=== PATIENT | female | born 1985 | race Caucasian/White ===

== ENCOUNTER 2024-04-12 17:21 | Emergency (ER) | payer MEDICARE, MEDICAID, SELFPAY ==
[2024-04-12] VITALS (14 sets, daily range): BP systolic 105–123; BP diastolic 62–103; PULSE 54–85; RESP 18; TEMP 36.8; O2SAT 94–100
--- NOTE | 2024-04-12 17:45 | DI.CT_ITS ---
Exam(s) CT ABDOMEN PELVIS W EXAM: CT ABDOMEN PELVIS W CLINICAL HISTORY: upper abd pain. TECHNIQUE: Imaging Protocol: Axial computed tomography images with coronal and sagittal reformatted images were created and reviewed CONTRAST MATERIAL: Intravenous: Omnipaque-350 75cc Oral: None COMPARISON: No exams were available for comparison FINDINGS: VISUALIZED LUNG BASES: No nodules nor pleural effusions evident. ABDOMEN: There is no ascites. LIVER: There are no focal hepatic lesions evident. No dilated intrahepatic ducts. GALLBLADDER/BILIARY: No obvious gallbladder pathology. CBD is not dilated. PANCREAS: No evidence of pancreatic mass nor dilatation of the pancreatic duct. SPLEEN: Spleen is not enlarged. No obvious intrasplenic lesions. Splenic and portal veins are paten t. ADRENALS: There are no significant adrenal masses. KIDNEYS:No cysts evident. No solid renal masses. No calculi nor hydronephrosis.. ABDOMINAL AORTA: Abdominal aorta is not enlarged. LYMPH NODES:There is no retroperitoneal nor paraaortic adenopathy. ABDOMINAL WALL: No evidence of significant anterior abdominal wall nor inguinal hernia. GI: There is significant abnormal appearance of distal ileal loops consistent with enteritis. The ap pearance of the sigmoid colon is also suspicious for colitis pattern although may be related to under distension. There is a small-moderate amount of free fluid in the pelvis cul-de-sac. PELVIS: GI: No evidence of appendicitis.Sigmoid as above. No evidence of diverticulitis. LYMPH NODES: There is no intrapelvic nor inguinal adenopathy. REPRODUCTIVE: Uterus appears unremarkable. However, there are dilated left periuterine veins which d rain into a prominent left gonadal vein, consistent with pelvic congestion syndrome. No ovarian mass es URINARY BLADDER: No calculi nor obvious masses evident OSSEOUS: No fractures and no significant osseous lesions. Sacroiliac joints appear unremarkable. IMPRESSION: 1. There are abnormal distal small bowel ileal loops consistent with enteritis. Correlation with any history of Crohn's disease recommended 2. Also some uniform circumferential thickening of the wall of the sigmoid. Either related to coliti s or possibly artifact from under distension. There is no evidence of bowel obstruction. 3. There is small-moderate amount of fluid in the cul-de-sac of the pelvis. This is either related t o the abnormal bowel findings, female physiologic, or a combination of both. 4. Dilated left periuterine veins draining into prominent left ovarian gonadal vein consistent with p elvic congestion physiology. Correlation with any clinical symptoms of pelvic congestion syndrome re commended. RADIATION DOSE DELIVERED: 301.18mGy.cm Total DLP DATA REPOSITORY: All CT scans at this facility are submitted to the National Radiology Data Registry (NRDR) Dose Index Registry (DIR) with the [employer] (A[employer]). RADIATION OPTIMIZATION: All CT scans at this facility use at least one of these dose optimization te chniques: automated exposure control; mA and/or kV adjustment per patient size (includes targeted exa ms where dose is matched to clinical indication); or iterative reconstruction.
--- NOTE | 2024-04-12 17:59 | W.ED.GENAD ---
Discharge Plan Disposition Patient Disposition: Home Condition: Stable Discharge Details Clinical Impression: Abdominal pain Primary Care Provider: Juan Alberts ED Provider: Yee Draper Home Meds and New Rx's Prescriptions: No Action buprenorphine-naloxone [Suboxone] 8-2 mg film 1 film sublingual DAILY dextroamphetamine-amphetamine [Adderall] 20 mg tablet 60 mg PO DAILY Discharge Instructions Instructions: Abdominal Pain, Adult ED Additional Instructions: Please follow-up with your primary care doctor tomorrow. As discussed your workup is incomplete. I will call you once your CAT scan is resulted. In the meantime do not hesitate to return to the emergency department for any other concerns. HPI General Date/Time Provider Initiated Documentation: 04/12/24 17:27. HPI Narrative: The patient is a 38-year-old female with a history of a lot of mental health issues according to the patient and low vitamin D who comes to the emergency department for abdominal pain. The patient reports that in the middle of the night she developed pain along the mid upper part of her abdomen. Reports this is a stabbing pain that comes and goes without exacerbating or relieving factor. Reports it shoots down more to the left side of the front abdomen. Reports that she ate at a buffet for lunch with her son. Reports she was only one who ate the seafood that tasted off. Reports that she did not feel sick immediately after however. Admits that she has felt nauseous but states she has not vomited. Reports she has had diarrhea for the past couple weeks but states this is better today. Reports that her urine today has looked very dark but denies any burning sensation with urination. Denies any concern. States she has not taken medication to help with her symptoms and in fact skipped all of her medication today because she just felt poorly. Denies history of similar type problem in the past. Reports never had any abdominal surgeries. Denies any fevers or chills. Denies any chest pain or shortness of breath. Reports that she does not drink alcohol. Related Data Home Medications ?Medication ?Instructions ?Recorded ?Confirmed buprenorphine 8 mg-naloxone 2 mg 1 film sublingual DAILY 04/12/24 04/12/24 sublingual film (Suboxone) dextroamphetamine-amphetamine 20 60 mg PO DAILY 04/12/24 04/12/24 mg tablet (Adderall) Allergies Allergy/AdvReac Type Severity Reaction Status Date / Time Penicillins Allergy Severe Anaphylaxis Verified 04/12/24 17:27 fentanyl Allergy Unknown Verified 04/12/24 17:27 General Stated Complaint: Abd Prob FELICITA: 3 Review of Systems Narrative: Review of systems are negative except as mentioned. Exam Const General: cooperative, healthy appearing and comfortable Nutritional Appearance: average body habitus Orientation: alert, awake and oriented x3 Resp Effort & Inspection: normal respiratory effort Auscultation: clear to auscultation bilaterally Cardio Rate: regular rate Rhythm: regular rhythm Pulses: radial pulses present GI Palpation: soft, no guarding, not rigid and tender in the epigastrum; not at McBurney's point and with no rebound tenderness Back/Spine/Pelvis Back: No no CVA tenderness Course Vital Signs Vital signs: Vital Signs Temperature 36.8 C 04/12/24 17:23 Pulse 85 04/12/24 17:23 Respiratory Rate 18 04/12/24 17:23 Blood Pressure 118/76 04/12/24 17:23 Pulse Oximetry 99 04/12/24 17:23 Temperature 36.8 C 04/12/24 17:27 Pulse 85 04/12/24 17:27 Respiratory Rate 18 04/12/24 17:27 Blood Pressure 118/76 04/12/24 17:27 Pulse Oximetry 99 04/12/24 17:27 Lab/Test Results Lab/Test Results: POC- Test(urine) Negative Medical Decision Making The patient voiced concern regarding strong family history of malignancies. Although the patient denies personal history of malignancy she was concerned nevertheless. The patient's urinalysis is back and this is negative for infectious process. Her blood count showed that she is hemoconcentrated so I ordered IV fluid for her. Chemistry is overall benign. Lipase is unremarkable. CAT scan is done but the result is still pending. I have since reevaluated the patient. She reports her pain is unchanged after Protonix. I added Toradol at this point. Unfortunately because of prolonged wait time for CAT scan result the patient has grown inpatient. She no longer wished to stay in the emergency department waiting for this. I spoke with her and her son regarding not having the full clinical picture therefore I am not able to give her any answer as to the etiology of her pain. Nevertheless she would like to leave. She asked that I call her for the results and gave me her number at [phone]. She me permission to leave a message on her phone if she does not pickle solution maker. I encouraged her at the very least to follow-up with her primary care provider tomorrow. I told her if her workup is incomplete and if she does have significant pathology that could be contributing to her symptoms and needs emergent evaluation and intervention this can cause delay of care which can lead to potential complications. Nevertheless again she still would like to leave therefore she is to be discharged. The patient's CAT scan is finally resulted. I called the patient regarding her result. In regards to the finding of enterocolitis I encouraged her to stay well-hydrated. Regarding the incidental finding of pelvic congestion I encouraged her to follow-up with her primary care regarding this. I told her however at any time if she does get worse or develop any new or concerning symptoms return to the emergency department immediately. Imaging Data Radiologic Study: Imaging: CT Scan (CT abdomen and pelvis) Radiologist's impression: V-rad: 1. There are diffuse fluid filled loops of small bowel and colon with scattered air fluid levels. The bowel loops are mildly distended. There is mild small bowel and colonic wall thickening. Findings most consistent with diffuse enterocolitis. 2. There is a small amount of free fluid present within the pelvis. 3. There is a prominent left ovarian vein with large pelvic venous collaterals present. The findings are consistent with pelvic congestion physiology. Clinical correlation as to presence of pelvic congestion syndrome recommended. Quality:SDOH Health Related Social Needs: No Data to Display PFSH All Active Problems (Updated 04/12/24 @ 20:22 by Yee Draper DO) Abdominal pain (Acute) Social History Smoking/Tobacco Use Status: Current every day Tobacco Type: cigarettes and e-cigarettes Smoking risk assessment performed?: Yes Alcohol Intake: current Alcohol Intake frequency: a few times a month Drug use: Daily Substance use type: marijuana
[2024-04-12 18:02] LABS: Bilirubin Negative (Negative); Blood Negative (Negative); Clarity Clear (Clear); Glucose Negative (Negative); Ketones Trace mg/dL (Negative); Leukocyte Esterase Negative (Negative); Nitrite Negative (Negative); Urobilinogen 0.2 mg/dL (Up to 0.2); pH 7.5 (5-8)
[2024-04-12 18:28] LABS: Abs Immature Grans 0.05 10^3/uL (0.0-0.06); Absolute Basophil Count 0.05 10^3/uL (0.0-0.2); Absolute Eosinophil Count 0.09 10^3/uL (0.0-0.7); Absolute Lymphocyte Count 3.12 10^3/uL (1.2-3.4); Basophils % 0.3 %; Eosinophils % 0.5 %; HCT 49.4 % (36.0-46.0); HGB 17.5 g/dL (11.2-15.7); Immature Grans % 0.3 %; Lymphocytes % 18.2 %; MCH 31.3 pg (27.0-33.0); MCHC 35.4 % (32.0-36.0); MCV 88 fL (80-95); MPV 11.2 fL (8.0-11.0); Monocytes % 5.1 %; Neutrophils % 75.6 %; Platelet Count 356 10^3/uL (130-400); RDW 12.7 % (11.7-14.6); RDW-SD 41.5 fL; WBC 17.14 10^3/uL (4.4-10.8)
[2024-04-12 18:29] LABS: Absolute Monocyte Count 0.87 10^3/uL (0.1-0.8); Absolute Neutrophil Count 12.96 10^3/uL (1.2-6.7)
[2024-04-12] MEDS: Pantoprazole 40 MG VIAL IVP (18:32)
[2024-04-12] MEDS: Normal Saline - Diluent 50 ML VIAL IJ (18:41)
[2024-04-12] MEDS: Omnipaque 350 MG/ML 100 ML BTL IJ (18:41)
[2024-04-12 18:42] LABS: ALT 22 U/L (14-59); AST 14 U/L (15-37); Albumin 4.3 g/dL (3.4-5.0); Alkaline Phosphatase 81 U/L (46-116); Anion Gap 12.1 mmol/L (3-11); BUN 14 mg/dL (7-18); Bilirubin, Total 0.73 mg/dL (0.2-1.0); CO2 25.9 mmol/L (21.0-32.0); CREATININE 0.8 mg/dL (0.55-1.02); Calcium 9.7 mg/dL (8.5-10.1); Chloride 107 mmol/L (98-107); Estimated GFR 95.46 (mL/min/1.73m2); Glucose 86 mg/dL (74-106); Lipase 19 U/L (<78); Potassium 3.7 mmol/L (3.5-5.1); Sodium 145 mmol/L (136-145); Total Protein 7.9 g/dL (6.4-8.2)
[2024-04-12] MEDS: Normal Saline Flush 10 ML SYR IVP (18:42)
[2024-04-12] MEDS: Normal Saline 1,000 ML 1000 ML IV (18:47)
[2024-04-12] MEDS: Ketorolac 30 MG/ML VIAL IVP (19:32)
--- NOTE | 2024-04-12 20:28 | DI.VRAD_ITS ---
PROCEDURE INFORMATION: Exam: CT Abdomen And Pelvis With Contrast Exam date and time: 04/12/2024 6:46 PM Age: 38 years old Clinical indication: Abdominal pain; Localized; Upper abd pain TECHNIQUE: Imaging protocol: Computed tomography of the abdomen and pelvis with contrast. Radiation optimization: All CT scans at this facility use at least one of these dose optimization techniques: automated exposure control; mA and/or kV adjustment per patient size (includes targeted exams where dose is matched to clinical indication); or iterative reconstruction. Contrast material: OMNIPAQUE 350; Contrast volume: 75 ml; Contrast route: INTRAVENOUS (IV); COMPARISON: No relevant prior studies available. FINDINGS: Lungs: The lungs are normal. Pleural spaces: There is no evidence of pneumothorax. There are no pleural effusions present. Heart: The cardiac structures are normal. The cardiac structures are normal. Coronary arteries: No evidence of coronary artery atherosclerotic plaque or calcification. Liver: There is a diffuse decrease in hepatic parenchymal density, consistent with mild fatty infiltration. There are no focal liver lesions present. There is no evidence of intrahepatic or extrahepatic biliary ductal dilation. Gallbladder and biliary ducts: The gallbladder is normal. There is no cholelitiasis, wall thickening or pericholecystic fluid to suggest cholecystitis. Pancreas: The pancreas is normal. Spleen: The spleen is normal. Adrenal glands: The adrenal glands are normal without evidence of mass or enlargement. Kidneys and ureters: The kidneys are normal no evidence of nephrolithiasis or hydronephrosis. The ureters are normal caliber and follow a normal caliber and course. Stomach and bowel: There are diffuse fluid filled loops of small bowel and colon with scattered air fluid levels. The bowel loops are mildly distended. There is mild small bowel and colonic wall thickening. Findings most consistent with diffuse enterocolitis. No evidence of bowel obstruction. Appendix: A normal appendix is identified. There is no evidence of distention or periappendiceal inflammation to suggest appendicitis. Intraperitoneal space: There is a small amount of free fluid present within the pelvis. No evidence of free air within the abdomen. Vasculature: The aorta is unremarkable without evidence of significant atherosclerosis or aneurysmal disease. The peripheral arterial vascular system visualized is unremarkable. The portal venous system visualized is unremarkable. The peripheral venous vascular system visualized is unremarkable. There is a prominent left ovarian vein with large pelvic venous collaterals present. The findings are consistent with pelvic congestion physiology. Clinical correlation as to presence of pelvic congestion syndrome recommended. Lymph nodes: No enlarged lymph nodes. Urinary bladder: The bladder is normal. Reproductive: The uterus is normal. Bones/joints: The skeletal structures and soft tissues show no evidence of fracture or other acute processes. Soft tissues: There is a fat-containing umbilical hernia. The extra-abdominal soft tissues are normal. IMPRESSION: 1. There are diffuse fluid filled loops of small bowel and colon with scattered air fluid levels. The bowel loops are mildly distended. There is mild small bowel and colonic wall thickening. Findings most consistent with diffuse enterocolitis. 2. There is a small amount of free fluid present within the pelvis. 3. There is a prominent left ovarian vein with large pelvic venous collaterals present. The findings are consistent with pelvic congestion physiology. Clinical correlation as to presence of pelvic congestion syndrome recommended. Dictated and Authenticated by: Pino Dougherty MD. Orderin Baron Fraire MD
== END 2024-04-12 20:31 | disposition home or self-care (01) ==
PROVIDERS: Emergency Provider Emergency Medicine; PCP Internal Medicine
DX: K52.9 Noninfective gastroenteritis and colitis, unspecified (principal); F17.210 Nicotine dependence, cigarettes, uncomplicated; F17.290 Nicotine dependence, other tobacco product, uncomplicated
CPT/HCPCS: 80053; 81025; 83690; 96361; 96374; 96375; 99285; 74177; 81003; 85025; J1885; J2470; J3490